=== PATIENT | female | born 1940 | race Caucasian/White ===

== ENCOUNTER → 2018-12-03 | Outpatient (CLI) | payer MEDICARE, OTHER | DX: R73.09 Other abnormal glucose (principal) | CPT/HCPCS: 97802 ==

== ENCOUNTER → 2019-12-24 | Outpatient (CLI) | payer MEDICARE, OTHER ==
--- NOTE | 2019-12-24 10:53 | ECHOF ---
Referral Reason:R01.1 cardiac murmur MEASUREMENTS -------- HEIGHT: 154.9 cm WEIGHT: 64.9 kg BP: RVIDd: 3.3 cm (< 3.3) IVSd: 1.2 cm (0.6 - 1.1) LVIDd: 3.9 cm (3.9 - 5.3) LVPWd: 1.0 cm (0.6 - 1.1) EDV(Teich): 68 ml IVSs: 1.5 cm LVIDs: 3.0 cm LVPWs: 1.2 cm %IVS Thck: 22 % ESV(Teich): 34 ml EF(Teich): 49 % %FS: 25 % SV(Teich): 33 ml LA Diam: 3.6 cm (2.7 - 3.8) LALs A4C: 3.9 cm LAAs A4C: 11.4 cm LAESV A-L A4C: 29 ml LAESV MOD A4C: 28 ml LALs A2C: 5.4 cm LAAs A2C: 17.9 cm LAESV A-L A2C: 51 ml LAESV MOD A2C: 48 ml LAESV(A-L): 45 ml LAESV Index (A-L): 27.48 ml/m Ao Diam: 2.6 cm (2.0 - 3.7) AV Cusp: 1.4 cm (1.5 - 2.6) MV EXCURSION: 13.883 mm (> 18.000) MV EF SLOPE: 60 mm/s (70 - 150) EPSS: 0.4 cm MV E Gal: 0.34 m/s MV DecT: 227 ms MV Dec Upson: 1.5 m/s MV A Gal: 0.69 m/s MV E/A Ratio: 0.49 MV PHT: 66 ms LVOT Vmax: 0.83 m/s LVOT maxP.79 mmHg LVOT Vmax: 0.86 m/s LVOT Vmean: 0.55 m/s LVOT maxP.93 mmHg LVOT meanP.41 mmHg LVOT Env.Ti: 304 ms LVOT VTI: 16.7 cm AV Vmax: 1.96 m/s AV maxP.54 mmHg AV Vmax: 1.96 m/s AV Vmean: 1.33 m/s AV maxP.46 mmHg AV meanP.18 mmHg AV Env.Ti: 334 ms AV VTI: 44.3 cm TR Vmax: 2.01 m/s TR maxP.14 mmHg RAP: 5.00 mmHg RVSP: 21.14 mmHg FINDINGS -------- Sinus rhythm. This was a technically good study. The left ventricular size is normal. There is mild concentric left ventricular hypertrophy. Overa ll left ventricular systolic function is normal with, an EF between 55 - 60 %. The diastolic fillin g pattern is normal for the age of the patient 9.48. The right ventricle is normal in size. Normal LA size by volume 22+/-6 ml/m2. There is moderate aortic valve sclerosis. There is mild aortic stenosis present. Peak/mean gradie nt across the Aortic Valve is 15.46mmHg / 8.18mmHg. Can't exclude Bicuspid valve vs fused cusp. Mild mitral annular calcification present. Mild mitral regurgitation is present. The tricuspid valve appears structurally normal. Mild tricuspid regurgitation present. Right vent ricular systolic pressure is normal at < 35 mmHg. The pulmonic valve was not well visualized. There is no pulmonic regurgitation present. The aortic root size is normal. Echo free space may represent effusion or a pericardial fat pad. CONCLUSIONS -------- 1. There is mild concentric left ventricular hypertrophy. 2. Overall left ventricular systolic function is normal with, an EF between 55 - 60 %. 3. The diastolic filling pattern is normal for the age of the patient 9.48 4. Normal LA size by volume 22+/-6 ml/m2. 5. There is moderate aortic valve sclerosis. 6. There is mild aortic stenosis present. 7. Peak/mean gradient across the Aortic Valve is 15.46mmHg / 8.18mmHg. 8. Can't exclude Bicuspid valve vs fused cusp. 9. Mild mitral regurgitation is present. 10. Mild tricuspid regurgitation present. MINI BAR ATTENDANT: Kellie Dueñas RDCS
== END | disposition home or self-care (01) ==
LOC: RADECHMAIN 08:17
PROVIDERS: ATTEND Family Medicine
DX: I08.3 Combined rheumatic disorders of mitral, aortic and tricuspid valves (principal)
CPT/HCPCS: 93306

== ENCOUNTER → 2023-09-12 | Outpatient (CLI) | payer MEDICARE, OTHER ==
[2023-09-12 15:18] LABS: African American GFR (CKD) >90 (>60 ml/min/1.73 sqM); Blood Urea Nitrogen 13 mg/dL (7-17); Non-African American GFR(CKD) >90 (>60 ml/min/1.73 sqM)
--- NOTE | 2023-09-12 17:47 | CT ---
EXAMINATION TYPE: CT abdomen pelvis w con CT DLP: 1365 mGycm, Automated exposure control for dose reduction was used. DATE OF EXAM: 09/12/2023 4:49 PM COMPARISON: None CLINICAL INDICATION:Female, 83 years old with history of R10.9 UNSPECIFIED ABDOMINAL PAIN; Mid abdomi nal pain that radiates towards back x 2 months TECHNIQUE: Axial CT abdomen pelvis w con;Sagittal and coronal reformats were created on a separate w orkstation. Contrast used:80 mL of Isovue 300 with IV Contrast, (none if empty) Oral contrast used: with Oral Contrast (none if empty) FINDINGS: LOWER CHEST: Unremarkable ABDOMEN LIVER: 3 indeterminate lesions measuring up to 29 mm, 21 mm and 12 mm. Additional scattered more simp le appearing cysts are present. GALLBLADDER AND BILE DUCTS: Unremarkable. PANCREAS: There is a pancreatic tail mass-like area measuring 7.0 x 5.0 x 5.1 cm which is present het erogenous in appearance. No organizing fluid collection. SPLEEN: Unremarkable. ADRENAL GLANDS: Unremarkable. KIDNEYS AND URETERS: No evidence of hydronephrosis or renal calculus. The ureters are unremarkable. PELVIS BLADDER: Unremarkable REPRODUCTIVE: Uterus is not definitively visualized.. ABDOMEN & PELVIS STOMACH AND BOWEL: No evidence of bowel obstruction. Third portion duodenal diverticulum. PERITONEUM/RETROPERITONEUM: No evidence of pneumoperitoneum or free fluid. VASCULATURE: No evidence of aortic aneurysm. MUSCULOSKELETAL: No acute osseous abnormalities. Moderate disc degeneration changes are present throu ghout the thoracolumbar spine. LYMPH NODES: No gross evidence for lymphadenopathy. SOFT TISSUE/ABDOMINAL WALL: Fat-containing umbilical hernia. IMPRESSION: Pancreatic tail mass like area concerning for neoplastic process until proven otherwise. There is at least 3 lesions in the liver concerning for metastatic disease. MRI pancreatic mass protocol recommen ded for further evaluation. Close to prior correlate with tumor markers and consideration for chronic pancreatitis change could also be considered in the differential but felt to be less likely.
== END | disposition home or self-care (01) ==
LOC: RADCTMAIN 14:15
PROVIDERS: ATTEND Family Medicine
DX: R10.9 Unspecified abdominal pain (principal)
CPT/HCPCS: 82565; 84520; 74177; 36415; Q9967

== ENCOUNTER → 2023-09-17 | Outpatient (CLI) | payer MEDICARE, OTHER ==
--- NOTE | 2023-09-17 16:23 | MR ---
EXAMINATION TYPE: MR pancreas wo/w con DATE OF EXAM: 09/17/2023 9:25 AM CLINICAL INDICATION:Female, 83 years old with history of K86.89 OTHER SPECIFIED DISEASES OF PANCREAS; PHH, Abnormal CT, mass tail of pancreas and spots on liver COMPARISON: CT scan abdomen from 09/12/2023. TECHNIQUE: Multiplanar multi-sequence imaging was performed without contrast. Post contrast imaging was performed. Post IV contrast subtraction images were also submitted for review. IV Contrast: 5.5 cc Gadavist FINDINGS: LOWER CHEST: No gross irregularity. ABDOMEN Liver: No evidence for hepatic steatosis or cirrhosis. Scattered high T2 signal cysts are seen throug hout the liver. Additional areas of abnormal signal within the liver are present including 22 mm lesi on near the gallbladder fossa series 601 image 22, in the left hepatic lobe measuring 16 mm series 60 1 image 42. Another larger lesion most pronounced on postcontrast imaging measuring up to 28 x 21 mm. These demonstrate hypoenhancement on postcontrast imaging. Gallbladder and Bile ducts: No evidence for ductal dilation, or biliary stricture or evidence of chol edocholithiasis. The gallbladder is within normal limits. Ducts are within normal limits for size giv en patient's age. Pancreas: No ductal dilation. No evidence for solid mass. Heterogenous pancreatic tail mass measuring 73 x 54 x 47 mm. a dilated duct extends into the pancreatic tail series 1001 image 14.. Spleen: Normal for size. Adrenal glands: Unremarkable. Kidneys: No evidence for obstructive uropathy. No suspicious renal masses. Stomach and Bowel: No evidence for bowel wall thickening or evidence for obstruction. Retroperitoneum/Peritoneum: No evidence of pneumoperitoneum or free fluid. Vasculature: No aortic aneurysm. Musculoskeletal: The osseous structures appear intact, mild scoliosis changes. Multilevel degeneratio n changes throughout the spine. Lymph Nodes: No gross evidence for lymphadenopathy. Abdominal wall: Fat-containing umbilical hernia. 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
== END | disposition home or self-care (01) ==
LOC: RADMRIMAIN 08:08
PROVIDERS: ATTEND Family Medicine
DX: C25.2 Malignant neoplasm of tail of pancreas (principal); K86.89 Other specified diseases of pancreas; K76.89 Other specified diseases of liver
CPT/HCPCS: 74183; A9585

== ENCOUNTER 2023-10-03 07:43 | Day surgery (SDC) | payer MEDICARE, OTHER ==
[2023-10-03] MEDS ORDERED: HYDROmorphone 0.5 MG/0.5 ML SYRINGE IVP PRN (08:07)
[2023-10-03 08:55] VITALS: TEMP 98
[2023-10-03 09:00] LABS: Mean Platelet Volume 7.2; Platelet Count 373 k/uL (150-450)
[2023-10-03 09:08] LABS: Prothrombin Time 11.3 sec (10.0-12.5)
--- NOTE | 2023-10-03 10:25 | CT ---
EXAMINATION TYPE: CT biopsy liver DATE OF EXAM: 10/03/2023 10:20 AM CLINICAL INDICATION:Female, 83 years old with history of K76.89 OTHER SPECIFIED DISEASES OF LIVER; COMPARISON: 09/12/2023 CT DLP: 1026 mGycm, Automated exposure control for dose reduction was used. Contrast used: mL of , none Oral contrast used: none ATTENDING: Dr. Radu Schneider TECHNIQUE: CT guided percutaneous liver biopsy using coaxial method. One or more CT dose reduction strategies we re utilized during this examination. Total CT dose 1026 mGycm. . FINDINGS: The procedure was explained to the patient including risks of bleeding, bruising, infection, damage t o nearby organs and need for additional therapy including potential surgery. All questions were answ ered and consent was obtained. The previous studies were reviewed. The patient was placed on the CT couch in the supine position. The overlying skin was marked and prepped using sterile method. Timeout was taken per protocol. Follo wing administration of local anesthesia a 19 gauge coaxial needle was introduced on the right liver m ass. The coaxial needle tip was directed into the mass with CT guidance. Two 20 gauge coaxial biops ies were then obtained. Following the procedure the needle was removed and sterile dressing was ap plied to the percutaneous site. Post biopsy imaging demonstrated no evidence of hemorrhage. Patient was taken for postprocedure observation in stable condition. IMPRESSIONS: Status post percutaneous right liver mass biopsy as described above. Pathology results pending.
[2023-10-03] MEDS: HYDROcodone/APAP 5-325MG 1 EACH TAB PO PRN (11:12)
[2023-10-03 11:27] LABS: Glucose,Whole Blood 122 mg/dL (70-110)
[2023-10-03 12:47] VITALS: RESP 16
[2023-10-03 14:21] VITALS: BP 132/78; PULSE 68
== END 2023-10-03 14:00 | disposition home or self-care (01) ==
LOC: RADPROMAIN 07:43
PROVIDERS: ATTEND Internal Medicine
DX: K76.9 Liver disease, unspecified (principal); K86.9 Disease of pancreas, unspecified
CPT/HCPCS: 36415; 47000; 77012; 82947; 85049; 85610; 88307; 88341; 88342